=== PATIENT | male | born 1975 | race Hispanic/Latino ===

== ENCOUNTER 2023-11-08 10:48 | Day surgery (SDC) | payer BC ==
[2023-11-08] MEDS ORDERED: CEFAZOLIN SODIUM 1 GM/VIAL ONE (11:25)
[2023-11-08] MEDS ORDERED: Ringers Lactate 1,000 ML IV ONE (11:26)
[2023-11-08 11:28] LABS: Absolute Basophils 0.1 K/uL (0-0.5); Absolute Eosinophils 0.5 K/uL (0-0.5); Absolute Lymphocytes (CBC) 2.2 K/uL (0.7-4.9); Absolute Monocytes 0.5 K/uL (0.1-1.3); Absolute Neutrophil 3.6 K/uL (1.8-8.0); Basophils % 0.8 % (0-1.3); Eosinophils % 6.8 % (0-4.4); Hematocrit 41.8 % (39.6-49.0); Hemoglobin 13.8 g/dL (13.6-17.9); Lymphocytes % 32.1 % (15.3-44.8); MCH 29.8 pg (27.0-35.0); MCHC 32.9 g/dL (32.0-36.0); MCV 90.4 fL (80-100); MPV 8.5 fL (7.6-11.3); Monocytes % 7.6 % (3.3-12.3); Neutrophils % 52.7 % (41.7-73.7); Platelets 329 thou/uL (152-406); RBC Red Blood Cell Count 4.63 M/uL (4.33-5.43); Red Cell Distribution Width 13.2 % (12.1-15.2)
--- NOTE | 2023-11-08 11:37 | RAD REPORT ---
EXAM DESCRIPTION: RAD - Chest Pa And Lat (2 Views) - 11/08/2023 11:10 am CLINICAL HISTORY: PRE-OP Chest pain. COMPARISON: No comparisons FINDINGS: The lungs are clear. The heart is normal in size. No displaced fractures. IMPRESSION: No acute or concerning finding suspected.
[2023-11-08 11:41] LABS: Anion Gap 7.9 mEq/L (5.0-15.0); Potassium 3.9 mEq/L (3.5-5.1)
[2023-11-08] MEDS ORDERED: FENTANYL CITR 100 MCG/2 ML ONE (14:39)
[2023-11-08] MEDS ORDERED: KETOROLAC 30 MG/ML INJ ONE (14:39)
[2023-11-08] MEDS ORDERED: MIDAZOLAM HCL 2 MG/2 ML INJ ONE (14:39)
[2023-11-08] MEDS ORDERED: propofoL 200 MG/20 ML VIAL IV ONE (14:39)
[2023-11-08] MEDS ORDERED: LIDOCAINE 1% MPF 5 ML VIAL ONE (14:39)
[2023-11-08] MEDS ORDERED: LIDOCAINE HCL/EPINEPHRINE 20 ML MDV ONE (14:48)
[2023-11-08] MEDS ORDERED: EPHEDRINE SULF 50 MG/ML VIAL ONE (15:23)
--- NOTE | 2023-11-08 16:01 | P.BOP ---
Preoperative diagnosis: Left scalp subq mass Postoperative diagnosis: same Primary procedure: Excisional biopsy of left scalp subQ mass 2x2cm Estimated blood loss: <10cc Specimen: mass Findings: mass Anesthesia: General Complications: None Transferred to: Recovery Room Condition: Good
--- NOTE | 2023-11-08 16:58 | EKG ---
Test Date: 2023-11-08 Test Time: 11:17:03 Quill Winder: DOUG MEASUREMENT RESULTS: Intervals: Rate: 68 NC: 132 QRSD: 96 QT: 392 QTc: 416 [place]: P: 5 NC: 132 QRS: -9 T: 96 INTERPRETIVE STATEMENTS: Normal sinus rhythm Possible Anterior infarct, age undetermined Abnormal ECG No previous ECG available for comparison Electronically Signed On 11-08-23 16:58:05 CDT by Vipul Jackson
[2023-11-08 17:22] VITALS: BP 111/68; O2SAT 100
[2023-11-08 17:23] VITALS: TEMP 97
--- NOTE | 2023-11-09 05:16 | OP ---
Date of Procedure: 11/08/2023 Surgeon: Alverto Artis MD Preoperative Diagnosis: Tender left scalp subcutaneous mass. Postoperative Diagnosis: Tender left scalp subcutaneous mass. Procedure: Excisional biopsy of tender left scalp subcutaneous mass 2 x 2 cm. Anesthesia: General plus local. Estimated Blood Loss: Less than 10 cc. Specimen: Mass. Indications: This is a case of a 48-year-old patient who comes to us with a tender scalp mass, incre asing in size. He does not recall any trauma in that region, is getting him concerned. He wants juan r t excised. The benefits, alternatives, and risks of excision fully explained, which include, but not limited to infection, bleeding, damage to adjacent structures, anesthesia complication, alopecia, IA , and . He also understands this might not relieve any symptoms. He might need more than one s urgical intervention. He understood, signed a consent. The area of concern was marked by me and the patient in the holding room. Description Of Procedure: The patient was brought to the operating room, placed in supine position. Anesthesia was done without complication. The patient was placed in lateral decubitus position with proper protection. The scalp area was prepped and draped in a sterile fashion. A time-out was call ed. For local anesthetic, we used lidocaine with epi. After we injected that, we proceeded to make an incision in the skin. We noted this fatty tumor coming into the scalp area close to the bone does not penetrate the bone. The mass was completely excised. Hemostasis was obtained. The area was ir rigated and then after that, we proceeded to closed with a combination of 3-0 chromic subcu and then the 2-0 nylon on the skin. Sponge count and instrument counts correct. No other masses palpated. A margy was covered with sterile dressings, and the patient was sent to Recovery in stable condition. Condition: Stable. Activity: As tolerated. No heavy lifting. Plan: Follow up in my office in 1 week. Call for appointment [phone]. Keep area dry until he see us in the office. SOURAV/MAKAYLA Voice ID: [id number] Report ID: [id number]
== END 2023-11-08 17:00 | disposition home or self-care (01) ==
LOC: OR 10:48
PROVIDERS: ATTEND Surgery
PROC: 0JB00ZZ Excision of Scalp Subcutaneous Tissue and Fascia, Open Approach (ICD-10-PCS; principal; 2023-11-08 13:00)
DX: D23.4 Other benign neoplasm of skin of scalp and neck (principal); I10 Essential (primary) hypertension
CPT/HCPCS: 93005; 85025; 80048; 36415; 88305; 71046; 11422; J2704; J2001; J2250; J3010; J7120; J0690; 88304